=== PATIENT | female | born 1945 | race Caucasian/White ===

== ENCOUNTER 2016-12-17 16:10 | Emergency (ER) | payer OTHER, MEDICAID ==
[2016-12-17 20:05] LABS: UA SPECIFIC GRAVITY >=1.030 (1.005-1.035); microscopic required? YES; urine erythrocyte TRACE (NEGATIVE)
[2016-12-17 20:06] LABS: BASOPHIL % 0.4 % (0-2); PLATELET COUNT 295 x10^3mcL (130-400)
[2016-12-17 20:08] LABS: RED CELL DISTRIBUTION WIDTH 15.1 % (11.5-14.5)
[2016-12-17 20:12] LABS: CALCIUM 9.2 mg/dL (8.5-10.1); CARBON DIOXIDE 26.7 mmol/L (21-32); CHLORIDE SERUM 107 mmol/L (98-107); CREATININE SERUM 1.1 mg/dL (0.6-1.0); GLUCOSE SERUM 101 mg/dL (74-106); POTASSIUM SERUM 3.9 mmol/L (3.5-5.1); SODIUM SERUM 144 mmol/L (136-145)
[2016-12-17 20:17] LABS: ALBUMIN 3.6 g/dL (3.4-5.0); ALKALINE PHOSPHATASE 92 U/L (46-116); ALT/SGPT 26 U/L (14-59); AST/SGOT 16 U/L (15-37); BILIRUBIN TOTAL 0.4 mg/dL (0.20-1.00); LIPASE 231 IU/L (73-393); TOTAL PROTEIN, SERUM 7.5 g/dL (6.4-8.2)
[2016-12-17 21:50] VITALS: BP 156/72
== END 2016-12-17 21:50 | disposition home or self-care (01) ==
LOC: ED 16:10
PROVIDERS: Emergency Medicine
DX: R10.9 Unspecified abdominal pain (principal); I10 Essential (primary) hypertension
CPT/HCPCS: Q0092

== ENCOUNTER 2020-10-16 11:53 | Emergency (ER) | payer OTHER, BC ==
[~2020-10-16] VITALS: Ht 157.5 cm; Wt 69.4 kg
[2020-10-16 12:05] VITALS: Ht 157.5 cm; Wt 69.4 kg
[2020-10-16] MEDS ORDERED: TRAMADOL HCL50 MG PO (13:27)
[2020-10-16 13:41] VITALS: BP 173/85
== END 2020-10-16 13:41 | disposition home or self-care (01) ==
LOC: ED 11:53
DX: M79.2 Neuralgia and neuritis, unspecified (principal); I10 Essential (primary) hypertension
CPT/HCPCS: J1885